=== PATIENT | female | born 1990 | race Caucasian/White ===

== ENCOUNTER 2017-08-03 08:37 | Inpatient (IN) | payer BC ==
[2017-08-03 10:23] VITALS: BMI 25.0
--- NOTE | 2017-08-03 10:51 | HP ---
COWS - Scale Resting Pulse: 1= [place] 81-100 Sweatin= Chills/Flushing Restless Observation: 1= Difficult to Sit Still Pupil Size: 1= Pupils >than Normal Bone or Joint Aches: 2= Severe Diffuse Aches Runny Nose/ Eye Tearin= Runny Nose/Eyes GI Upset > 30mins: 2= Nausea/Diarrhea Tremor Observation: 1= Tremor [place], Not Seen Yawning Observation: 1= 1-2x During Session Anxiety or Irritability: 2=Irritable/Anxious Goose Flesh Skin: 0=Smooth Skin COWS Score: 14 CIWA Score - CIWA Score Nausea/Vomitin Muscle Tremors: 1-None Visible, but [place] Anxiety: 4-Mod. Anxious/Guarded Agitation: 2 Paroxysmal Sweats: 2 Orientation: 0-Oriented Tacttile Disturbances: 0-None Auditory Disturbances: 0-None Visual Disturbances: 0-None Headache: 3-Moderate CIWA-Ar Total Score: 14 Admission [facility] - HPI Chief Complaint: Pt presents for Heroin and Xanax Withdrawal symptoms. Allergies/Adverse Reactions: Allergies Allergy/AdvReac Type Severity Reaction Status Date / Time No Known Allergies Allergy Verified 08/03/17 09:58 History of Present Illness: Pt presents for withdrawal symptoms from Heroin and Xanax. Also drinks ETOH every other day, about one pint of Vodka. Starting using heroin and Xanax at age 18-19 years old. Pt injects heroin up to 25-30 bags and takes 6-7mg of Xanax daily. Never attempted detox or heroin. Did outpatient rehab years ago in [facility] and then in [facility]. Most recent relapse one month ago after being sober 4-5 years. Has history of withdrawal seizures. Last episode 6 days ago. Pt states she didn't go to ER. Has history of anemia, depression and anxiety. Denies suicidal ideation and attempts. Last dose of heroin and Xanax last night at 11pm. Exam Limitations: No Limitations - Ebola screening Have you traveled outside of the country in the last 21 days: No Have you had contact with anyone from an Ebola affected area: No Have you been sick,other than usual withdrawal symptoms: No Do you have a fever: No - Review of Systems Constitutional: Chills, Night Sweats, Changes in sleep, Unexplained wgt Loss EENT: reports: Nose Congestion Respiratory: reports: No Symptoms reported Cardiac: reports: Chest Tightness GI: reports: Diarrhea, Nausea, Poor Fluid Intake, Abdominal cramping : reports: No Symptoms Reported Musculoskeletal: reports: Back Pain, Joint Pain, Muscle Pain Integumentary: reports: Sweating Neuro: reports: Headache, Numbness, Seizure, Tingling, Tremors Endocrine: reports: Flushing, Unexplained Weight Loss Hematology: reports: No Symptoms Reported Psychiatric: reports: Anxious, Depressed Patient History - Patient Medical History Hx Anemia: Yes Hx Asthma: No Hx Chronic Obstructive Pulmonary Disease (COPD): No Hx Cancer: No Hx Cardiac Disorders: No Hx Congestive Heart Failure: No Hx Hypertension: No Hx Hypercholesterolemia: No Hx Pacemaker: No HX Cerebrovascular Accident: No Hx Seizures: Yes (+seizures due to withdrawal from Xanax. Lst seizure 6 days. Didn't go to ER) Hx Dementia: No Hx Diabetes: No Hx Gastrointestinal Disorders: No Hx Liver Disease: No Hx Genitourinary Disorders: No Hx Sexually Transmitted Disorders: No Hx Renal Disease (ESRD): No Hx Thyroid Disease: No Hx Human Immunodeficiency Virus (HIV): No Hx Hepatitis C: No Hx Depression: Yes (Depression and Anxiety) Hx Suicide Attempt: No (denies SI/Suicidal attempts) Hx Bipolar Disorder: No Hx Schizophrenia: No - Patient Surgical History Past Surgical History: No Hx Neurologic Surgery: No Hx Cataract Extraction: No Hx Cardiac Surgery: No Hx Lung Surgery: No Hx Breast Surgery: No Hx Breast Biopsy: No Hx Abdominal Surgery: No Hx Appendectomy: No Hx Cholecystectomy: No Hx Genitourinary Surgery: No Hx Section: No Hx Orthopedic Surgery: No Hx Hysterectomy: No Anesthesia Reaction: No - PPD History Previous Implant?: Yes Documented Results: Negative w/o proof Implanted On Prior R Admission?: No - Reproductive History Last Menstrual Period: 07/22/17 Patient : No - Smoking Cessation Smoking history: Current every day smoker Have you smoked in the past 12 months: Yes Aproximately how many cigarettes per day: 30 Hx Chewing Tobacco Use: No Initiated information on smoking cessation: Yes 'Breaking Loose' booklet given: 08/03/17 - Substance & Tx. History Hx Alcohol Use: Yes Hx Substance Use: Yes Substance Use Type: Alcohol, Cocaine, Heroin, Opiates, Tranquilizers (Xanax) - Substances Abused Heroin Route: Injection Frequency: Daily Amount used: 25 bags Age of first use: 20 Date of Last Use: 08/02/17 Xanax Route: Oral Frequency: Daily Amount used: 6 tabs. (2 mg.) Age of first use: 15 Date of Last Use: 08/02/17 Alcohol-vodka Route: Oral Frequency: 3-6 times per week Amount used: 1 pt. Age of first use: 14 Date of Last Use: 08/02/17 Family Disease History - Family Disease History Family History: Unremarkable Admission Physical Exam [facility] - Vital Signs Vital Signs: Vital Signs - 24 hr 08/03/17 10:20 Temperature 98.7 F Pulse Rate 97 H Respiratory 20 Rate Blood Pressure 134/77 Cleared for Admission [facility] - Detox or Rehab [facility] Level of Care: Medically Managed Detox Regimen/Protocol: Methadone/Valium [facility] Breath Alcohol Content Breath Alcohol Content: 0 Urine Pregancy Test - Result Urine Test Results: Negative- NO Line Present Urine Drug Screen - Results Drug Screen Negative: No Urine Drug Screen Results: AZAM-Cocaine, OPI-Opiates, BZO-Benzodiazepines, OXY- Oxycodone Inpatient Rehab Admission - Initial Determination Are CD services needed?: Yes Free of communicable disease: Yes Not in need of hospitalization: Yes - Rehab Admission Criteria Previous failed treatment: Yes Poor recovery environment: Yes Comorbidities: Yes Lacks judgement: Yes
[2017-08-03] MEDS ORDERED: P-EPHED 60MG/TRIPROLIDI 2.5MG TABLET PO PRN (11:10)
[2017-08-03] MEDS ORDERED: guaiFENesin/D-METHORPHAN HB 10 ML UNIT-DOSE CUPS PO PRN (11:10)
[2017-08-03] MEDS ORDERED: MAG HYDROX/AL HYDROX/SIMETH 30 ML UNIT-DOSE CUP PO PRN (11:10)
[2017-08-03] MEDS ORDERED: LOPERAMIDE HCL 2 MG CAPSULE PO PRN (11:10)
[2017-08-03] MEDS ORDERED: MAGNESIUM HYDROX 2400MG/30ML ORAL SUSPENSION 30 ML CUP PO PRN (11:10)
[2017-08-03] MEDS ORDERED: NICOTINE POLACRILEX 2 MG GUM BUC PRN (11:10)
[2017-08-03] MEDS ORDERED: MENTHOL/PHENOL 1 EACH UD MM PRN (11:10)
[2017-08-03] MEDS ORDERED: MAGNESIUM CITRATE 300 ML BOTTLE PO PRN (11:10)
[2017-08-03] MEDS ORDERED: diazePAM 5 MG TABLET PO ONE (12:15)
[2017-08-03] MEDS ORDERED: METHADONE HCL 10 MG TABLET (FOR DETOX USE ONLY) PO ONE ×2 (12:17→23:00)
[2017-08-03] MEDS: diazePAM 5 MG TABLET PO SCH ×2 (14:16→22:45)
--- NOTE | 2017-08-03 15:44 | CONSULT ---
[facility] Psychiatric Consult - Data Date of interview: 08/03/17 Admission source: [facility] Identifying data: Pt. is a 26 year old single female, without kids, unemployed, and living with her boyfriend. This is patient's first [facility] to [facility]. Pt. admitted to for alcohol, cocaine, opiate, and benzodiazepine dependence. Substance Abuse History: Following information confirmed with Ms. Cordova: Smoking Cessation. Smoking history: Current every day smoker. Have you smoked in the past 12 months: Yes. Aproximately how many cigarettes per day: 30. Hx Chewing Tobacco Use: No. Initiated information on smoking cessation: Yes. ' Breaking Loose' booklet given: 08/03/17. - Substance & Tx. History. Hx Alcohol Use: Yes. Hx Substance Use: Yes. Substance Use Type: Alcohol, Cocaine , Heroin, Opiates, Tranquilizers (Xanax). - Substances Abused. Heroin. Route: Injection. Frequency: Daily. Amount used: 25 bags. Age of first use: 20. Date of Last Use: 08/02/17. Xanax. Route: Oral. Frequency: Daily. Amount used: 6 tabs. (2 mg.). Age of first use: 15. Date of Last Use: . Alcohol-vodka. Route: Oral. Frequency: 3-6 times per week. Amount used: 1 pt. Age of first use: 14. Date of Last Use: 08/02/17 Medical History: Anemia, Seizures due to withdrawal from Xanax. Lst seizure 6 days. Didn't go to ER Psychiatric History: Pt. denies h/o psychiatric hospitalization, outpatient care , and suicide attempts. Pt. was prescribed wellbutrin from her PCP approximately one year ago. Physical/Sexual Abuse/Trauma History: Denies. Mental Status Exam - Mental Status Exam Alert and Oriented to: Time, Place, Person Cognitive Function: Good Patient Appearance: Well Groomed Mood: Hopeful Affect: Appropriate Patient Behavior: Appropriate, Cooperative Speech Pattern: Clear, Appropriate Voice Loudness: Normal Thought Process: Goal Oriented Thought Disorder: Not Present Hallucinations: Denies Suicidal Ideation: Denies Homicidal Ideation: Denies Insight/Judgement: Poor Sleep: Poorly Appetite: Fair Muscle strength/Tone: Normal Gait/Station: Normal Psychiatric Findings - Problem List ([place] 1, 2,3) (1) Nicotine dependence Current Visit: Yes Status: Acute Qualifiers: Substance use status: unspecified nicotine-induced disorder (2) Opioid dependence with withdrawal Current Visit: Yes Status: Acute (3) Sedative hypnotic withdrawal Current Visit: Yes Status: Acute Qualifiers: Complication of substance-induced condition: uncomplicated Qualified Code(s ): 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 Detoxification in progress. Ambien 10mg qhs prn ordered for insomnia. Benefits and side effects discussed. Pt. made aware of the risk of parasomnia. Verbal consent given. Will continue to monitor patient.
[2017-08-03] MEDS: diazePAM 5 MG TABLET PO PRN (17:45)
[2017-08-03] MEDS ORDERED: ZOLPIDEM TARTRATE 10 MG TABLET (PARK CARE ONLY) PO PRN (22:00)
[2017-08-03] MEDS ORDERED: MELATONIN 5 MG TABLETS PO PRN (22:00)
[2017-08-03] MEDS: THIAMINE HCL 100 MG TABLET (FP) PO SCH (22:44)
[2017-08-03] MEDS: ZOLPIDEM TARTRATE 10 MG TABLET (PARK CARE ONLY) PO PRN (22:44)
[2017-08-03 23:36] LABS: URINE APPEARANCE SLCLOUDY; URINE BILIRUBIN NEGATIVE (<2.0 mg/dL); URINE BLOOD NEGATIVE (NEGATIVE); URINE COLOR AMBER; URINE GLUCOSE (UA) NEGATIVE (NEGATIVE); URINE KETONE 1+ (NEGATIVE); URINE LEUK ESTERASE NEGATIVE (NEGATIVE); URINE NITRITE NEGATIVE (NEGATIVE)
[2017-08-04 00:11] LABS: URINE PROTEIN 2+ (NEGATIVE)
[2017-08-04 00:30] LABS: EPI CELLS FEW /HPF (FEW); URINE BACTERIA RARE /hpf (NONE SEEN); URINE HYALINE CAST 47 /lpf; URINE MUCUS MANY
[2017-08-04] MEDS: diazePAM 5 MG TABLET PO SCH ×3 (06:21→22:18)
[2017-08-04] MEDS ORDERED: METHADONE HCL 10 MG TABLET (FOR DETOX USE ONLY) PO SCH (10:00)
[2017-08-04 10:43] LABS: HEMATOCRIT 38.6 % (32.4-45.2); HEMOGLOBIN 13.1 GM/dL (10.7-15.3); MCH 31.9 pg (25.7-33.7); MCHC 33.9 g/dl (32.0-36.0); MEAN PLT VOLUME 8.8 fl (7.5-11.1); PLATELET COUNT 295 K/MM3 (134-434); RBC 4.11 M/mm3 (3.60-5.2); RDW 12.9 % (11.6-15.6); WHITE BLOOD COUNT 10.5 K/mm3 (4.0-10.0)
[2017-08-04] MEDS: PRENATAL VITAMINS W/ FOLIC ACID TABLET (FP) PO SCH (10:50)
[2017-08-04] MEDS: NICOTINE 21 MG/24 HOURS TOPICAL PATCH TD SCH (10:50)
[2017-08-04] MEDS: diazePAM 5 MG TABLET PO PRN ×2 (10:52→17:57)
[2017-08-04] MEDS: ACETAMINOPHEN 325 MG TABLET (FP) PO PRN ×2 (11:37→17:53)
[2017-08-04 12:01] LABS: ALBUMIN 4.1 g/dl (3.4-5.0); ANION GAP 7 (8-16); BILIRUBIN,TOTAL 0.4 mg/dL (0.2-1.0); BLOOD UREA NITROGEN 9 mg/dL (7-18); CALCIUM 9.4 mg/dL (8.5-10.1); CHLORIDE 104 mmol/L (98-107); CO2 27 mmol/L (21-32); CREATININE 0.9 mg/dL (0.55-1.02); GLUCOSE,RANDOM 104 mg/dL (74-106); POTASSIUM 4.2 mmol/L (3.5-5.1); SGOT/AST 10 U/L (15-37); SGPT/ALT 15 U/L (12-78); SODIUM 138 mmol/L (136-145); TOT PROT 7.9 g/dl (6.4-8.2)
[2017-08-04 12:02] LABS: ALK PHOS 81 U/L (45-117)
--- NOTE | 2017-08-04 15:54 | PN ---
S CIWA - CIWA Score Nausea/Vomitin Muscle Tremors: 3 Anxiety: 3 Agitation: 2 Paroxysmal Sweats: 1-Minimal Palms Moist Orientation: 0-Oriented Tacttile Disturbances: 1-Very Mild Itch/Numbness Auditory Disturbances: 1-Very Mild Visual Disturbances: 0-None Headache: 2-Mild CIWA-Ar Total Score: 16 [facility] COWS - Scale Resting Pulse: 0= [place] 80 or Below Sweatin= Chills/Flushing Restless Observation: 3= Extraneous Movement Pupil Size: 2= Moderately Dilated Bone or Joint Aches: 2= Severe Diffuse Aches Runny Nose/ Eye Tearin= Runny Nose/Eyes GI Upset > 30mins: 3= Vomiting/Diarrhea Tremor Observation of Outstretched Hands: 2= Slight Tremor Visible Yawning Observation: 1= 1-2x During Session Anxiety or Irritability: 2=Irritable/Anxious Goose Flesh Skin: 0=Smooth Skin COWS Score: 18 [facility] Progress Note (SOAP) Subjective: ALERT,IRRITABLE,ANXIOUS,INTERRUPTED SLEEP,TREMOR,PAIN IN THE BODY AND BACK Objective: 08/04/17 15:51 Vital Signs Temperature 98.2 F 08/04/17 11:36 Pulse Rate 73 08/04/17 11:36 Respiratory Rate 18 08/04/17 11:36 Blood Pressure 109/67 08/04/17 11:36 O2 Sat by Pulse Oximetry (%) EKG NSR,NORMAL ECG 08/04/17 15:52 Vital Signs Temperature 98.2 F 08/04/17 11:36 Pulse Rate 73 08/04/17 11:36 Respiratory Rate 18 08/04/17 11:36 Blood Pressure 109/67 08/04/17 11:36 O2 Sat by Pulse Oximetry (%) 08/04/17 15:52 Laboratory Last Values WBC 10.5 K/mm3 (4.0-10.0) H 08/04/17 06:20 RBC 4.11 M/mm3 (3.60-5.2) 08/04/17 06:20 Hgb 13.1 GM/dL (10.7-15.3) 08/04/17 06:20 Hct 38.6 % (32.4-45.2) 08/04/17 06:20 MCV 94.0 fl (80-96) 08/04/17 06:20 MCH 31.9 pg (25.7-33.7) 08/04/17 06:20 MCHC 33.9 g/dl (32.0-36.0) 08/04/17 06:20 RDW 12.9 % (11.6-15.6) 08/04/17 06:20 Plt Count 295 K/MM3 (134-434) 08/04/17 06:20 MPV 8.8 fl (7.5-11.1) 08/04/17 06:20 Sodium 138 mmol/L (136-145) 08/04/17 06:20 Potassium 4.2 mmol/L (3.5-5.1) 08/04/17 06:20 Chloride 104 mmol/L (98-107) 08/04/17 06:20 Carbon Dioxide 27 mmol/L (21-32) 08/04/17 06:20 Anion Gap 7 (8-16) L 08/04/17 06:20 BUN 9 mg/dL (7-18) 08/04/17 06:20 Creatinine 0.9 mg/dL (0.55-1.02) 08/04/17 06:20 Creat Clearance w eGFR > 60 (>60) 08/04/17 06:20 Random Glucose 104 mg/dL (74-106) 08/04/17 06:20 Calcium 9.4 mg/dL (8.5-10.1) 08/04/17 06:20 Total Bilirubin 0.4 mg/dL (0.2-1.0) 08/04/17 06:20 AST 10 U/L (15-37) L 08/04/17 06:20 ALT 15 U/L (12-78) 08/04/17 06:20 Alkaline Phosphatase 81 U/L (45-117) 08/04/17 06:20 Total Protein 7.9 g/dl (6.4-8.2) 08/04/17 06:20 Albumin 4.1 g/dl (3.4-5.0) 08/04/17 06:20 Urine Color Kristyn 08/03/17 19:41 Urine Appearance Slcloudy 08/03/17 19:41 Urine pH 5.0 (5.0-8.0) 08/03/17 19:41 Ur Specific [place] 1.028 (1.001-1.035) 08/03/17 19:41 Urine Protein 2+ (NEGATIVE) H 08/03/17 19:41 Urine Glucose (UA) Negative (NEGATIVE) 08/03/17 19:41 Urine Ketones 1+ (NEGATIVE) H 08/03/17 19:41 Urine Blood Negative (NEGATIVE) 08/03/17 19:41 Urine Nitrite Negative (NEGATIVE) 08/03/17 19:41 Urine Bilirubin Negative (<2.0 mg/dL) 08/03/17 19:41 Urine Urobilinogen 2.0 mg/dL (0.2-1.0) H 08/03/17 19:41 Ur Leukocyte Esterase Negative (NEGATIVE) 08/03/17 19:41 Urine WBC (Auto) 8 /hpf (3-5) 08/03/17 19:41 Urine RBC (Auto) 1 /hpf (0-3) 08/03/17 19:41 Ur Epithelial Cells Few /HPF (FEW) 08/03/17 19:41 Urine Bacteria Rare /hpf (NONE SEEN) 08/03/17 19:41 Hyaline Casts 47 /lpf 08/03/17 19:41 Urine Mucus Many 08/03/17 19:41 RPR Titer Nonreactive (NONREACTIVE) 08/04/17 06:20 Hep C Ab Diagnostic <0.1 s/co ratio (0.0-0.9) 08/03/17 11:40 Liver Fibrosis Interp (.) 08/03/17 11:40 HIV 1&2 Antibody Screen Negative 08/03/17 11:00 HIV P24 Antigen Negative 08/03/17 11:00 Assessment: 08/04/17 15:53 WITHDRAWAL SYMPTOM Plan: CONTINUE DETOX
[2017-08-04] MEDS: THIAMINE HCL 100 MG TABLET (FP) PO SCH (22:17)
[2017-08-04] MEDS: ZOLPIDEM TARTRATE 10 MG TABLET (PARK CARE ONLY) PO PRN (22:18)
[2017-08-05] MEDS: diazePAM 5 MG TABLET PO PRN ×3 (00:52→18:06)
[2017-08-05] MEDS: ACETAMINOPHEN 325 MG TABLET (FP) PO PRN ×3 (09:32→18:06)
[2017-08-05] MEDS: PRENATAL VITAMINS W/ FOLIC ACID TABLET (FP) PO SCH (09:34)
[2017-08-05] MEDS: METHADONE HCL 5 MG TABLET (FOR DETOX USE ONLY) PO SCH (09:35)
[2017-08-05] MEDS: diazePAM 5 MG TABLET PO SCH ×2 (09:35→21:48)
[2017-08-05] MEDS: NICOTINE 21 MG/24 HOURS TOPICAL PATCH TD SCH (10:45)
--- NOTE | 2017-08-05 11:45 | PN ---
S CIWA - CIWA Score Nausea/Vomitin-Mild Nausea/No Vomiting Muscle Tremors: 4-Moderate,w/Arms Extend Anxiety: 4-Mod. Anxious/Guarded Agitation: 4-Moderately Restless Paroxysmal Sweats: 1-Minimal Palms Moist Orientation: 0-Oriented Tacttile Disturbances: 0-None Auditory Disturbances: 0-None Visual Disturbances: 0-None Headache: 0-None Present CIWA-Ar Total Score: 14 [facility] COWS - Scale Resting Pulse: 0= [place] 80 or Below Sweatin= Chills/Flushing Restless Observation: 1= Difficult to Sit Still Pupil Size: 0= Normal to Room Light Bone or Joint Aches: 2= Severe Diffuse Aches Runny Nose/ Eye Tearin= Runny Nose/Eyes GI Upset > 30mins: 2= Nausea/Diarrhea Tremor Observation of Outstretched Hands: 2= Slight Tremor Visible Yawning Observation: 2= >3x During Session Anxiety or Irritability: 2=Irritable/Anxious Goose Flesh Skin: 0=Smooth Skin COWS Score: 14 [facility] Progress Note (SOAP) Subjective: joint pain body ache sweat tremor anxiety restlessness difficulty sleep at night left hand palm between index and middle finger swell denies trauma Objective: 08/05/17 11:47 Vital Signs Temperature 97.3 F L 08/05/17 07:02 Pulse Rate 74 08/05/17 07:02 Respiratory Rate 18 08/05/17 07:02 Blood Pressure 120/71 08/05/17 07:02 O2 Sat by Pulse Oximetry (%) Laboratory Last Values WBC 10.5 K/mm3 (4.0-10.0) H 08/04/17 06:20 RBC 4.11 M/mm3 (3.60-5.2) 08/04/17 06:20 Hgb 13.1 GM/dL (10.7-15.3) 08/04/17 06:20 Hct 38.6 % (32.4-45.2) 08/04/17 06:20 MCV 94.0 fl (80-96) 08/04/17 06:20 MCH 31.9 pg (25.7-33.7) 08/04/17 06:20 MCHC 33.9 g/dl (32.0-36.0) 08/04/17 06:20 RDW 12.9 % (11.6-15.6) 08/04/17 06:20 Plt Count 295 K/MM3 (134-434) 08/04/17 06:20 MPV 8.8 fl (7.5-11.1) 08/04/17 06:20 Sodium 138 mmol/L (136-145) 08/04/17 06:20 Potassium 4.2 mmol/L (3.5-5.1) 08/04/17 06:20 Chloride 104 mmol/L (98-107) 08/04/17 06:20 Carbon Dioxide 27 mmol/L (21-32) 08/04/17 06:20 Anion Gap 7 (8-16) L 08/04/17 06:20 BUN 9 mg/dL (7-18) 08/04/17 06:20 Creatinine 0.9 mg/dL (0.55-1.02) 08/04/17 06:20 Creat Clearance w eGFR > 60 (>60) 08/04/17 06:20 Random Glucose 104 mg/dL (74-106) 08/04/17 06:20 Calcium 9.4 mg/dL (8.5-10.1) 08/04/17 06:20 Total Bilirubin 0.4 mg/dL (0.2-1.0) 08/04/17 06:20 AST 10 U/L (15-37) L 08/04/17 06:20 ALT 15 U/L (12-78) 08/04/17 06:20 Alkaline Phosphatase 81 U/L (45-117) 08/04/17 06:20 Total Protein 7.9 g/dl (6.4-8.2) 08/04/17 06:20 Albumin 4.1 g/dl (3.4-5.0) 08/04/17 06:20 Urine Color Kristyn 08/03/17 19:41 Urine Appearance Slcloudy 08/03/17 19:41 Urine pH 5.0 (5.0-8.0) 08/03/17 19:41 Ur Specific [place] 1.028 (1.001-1.035) 08/03/17 19:41 Urine Protein 2+ (NEGATIVE) H 08/03/17 19:41 Urine Glucose (UA) Negative (NEGATIVE) 08/03/17 19:41 Urine Ketones 1+ (NEGATIVE) H 08/03/17 19:41 Urine Blood Negative (NEGATIVE) 08/03/17 19:41 Urine Nitrite Negative (NEGATIVE) 08/03/17 19:41 Urine Bilirubin Negative (<2.0 mg/dL) 08/03/17 19:41 Urine Urobilinogen 2.0 mg/dL (0.2-1.0) H 08/03/17 19:41 Ur Leukocyte Esterase Negative (NEGATIVE) 08/03/17 19:41 Urine WBC (Auto) 8 /hpf (3-5) 08/03/17 19:41 Urine RBC (Auto) 1 /hpf (0-3) 08/03/17 19:41 Ur Epithelial Cells Few /HPF (FEW) 08/03/17 19:41 Urine Bacteria Rare /hpf (NONE SEEN) 08/03/17 19:41 Hyaline Casts 47 /lpf 08/03/17 19:41 Urine Mucus Many 08/03/17 19:41 RPR Titer Nonreactive (NONREACTIVE) 08/04/17 06:20 Hep C Ab Diagnostic <0.1 s/co ratio (0.0-0.9) 08/03/17 11:40 Liver Fibrosis Interp (.) 08/03/17 11:40 HIV 1&2 Antibody Screen Negative 08/03/17 11:00 HIV P24 Antigen Negative 08/03/17 11:00 lab noted 08/05/17 11:49 left hand palm swell + erythema tenderness able to make fist slowly brisk capillary refilled Assessment: 08/05/17 11:48 withdrawal sx 08/05/17 11:50 cellulitis Plan: continue detox keflex 500 mg bid x 7 days
[2017-08-05] MEDS: CEPHALEXIN MONOHYDRATE 500 MG CAPSULE (UD) PO SCH ×2 (13:22→21:48)
[2017-08-05] MEDS: hydrOXYzine PAMOATE 50 MG CAPSULE (FP) PO PRN (15:40)
[2017-08-05] MEDS: IBUPROFEN 400 MG TABLET (FP) PO PRN (21:47)
[2017-08-05] MEDS: ZOLPIDEM TARTRATE 10 MG TABLET (PARK CARE ONLY) PO PRN (21:48)
[2017-08-05] MEDS: THIAMINE HCL 100 MG TABLET (FP) PO SCH (21:48)
[2017-08-06] MEDS: diazePAM 5 MG TABLET PO PRN (07:01)
[2017-08-06] MEDS: IBUPROFEN 400 MG TABLET (FP) PO PRN ×3 (07:01→19:53)
[2017-08-06] MEDS: PRENATAL VITAMINS W/ FOLIC ACID TABLET (FP) PO SCH (10:05)
[2017-08-06] MEDS: CEPHALEXIN MONOHYDRATE 500 MG CAPSULE (UD) PO SCH ×2 (10:05→22:23)
[2017-08-06] MEDS: METHADONE HCL 5 MG TABLET (FOR DETOX USE ONLY) PO SCH (10:06)
[2017-08-06] MEDS: diazePAM 5 MG TABLET PO SCH ×2 (10:06→22:21)
[2017-08-06] MEDS: ACETAMINOPHEN 325 MG TABLET (FP) PO PRN ×3 (10:07→22:21)
[2017-08-06] MEDS: NICOTINE 21 MG/24 HOURS TOPICAL PATCH TD SCH (10:09)
[2017-08-06] MEDS: hydrOXYzine PAMOATE 50 MG CAPSULE (FP) PO PRN ×3 (11:30→22:23)
--- NOTE | 2017-08-06 12:40 | PN ---
[facility] Progress Note (SOAP) Subjective: Anxious Sleep disturbance Objective: 08/06/17 12:39 A & O x 3 not in acute distress Vital Signs Temperature 98.4 F 08/06/17 10:20 Pulse Rate 85 08/06/17 10:20 Respiratory Rate 18 08/06/17 10:20 Blood Pressure 105/86 08/06/17 10:20 O2 Sat by Pulse Oximetry (%) Assessment: 08/06/17 12:40 withdrawal sx Plan: continue detox
--- NOTE | 2017-08-06 12:44 | EKG ---
Test Reason : Blood Pressure : / mmHG Vent. Rate : 077 BPM Atrial Rate : 077 BPM P-R Int : 154 ms QRS Dur : 080 ms QT Int : 368 ms P-R-T Axes : 017 077 058 degrees QTc Int : 416 ms NORMAL SINUS RHYTHM NORMAL ECG NO PREVIOUS ECGS AVAILABLE Confirmed by KRAIG TAMAYO MD ([id number]) on 08/06/2017 12:44:31 PM Referred By: Confirmed By:KRAIG TAMAYO MD
[2017-08-06] MEDS ORDERED: diazePAM 5 MG TABLET PO ONE (13:30)
[2017-08-06] MEDS: THIAMINE HCL 100 MG TABLET (FP) PO SCH (22:21)
[2017-08-07] MEDS: hydrOXYzine PAMOATE 50 MG CAPSULE (FP) PO PRN (02:42)
[2017-08-07] MEDS: ACETAMINOPHEN 325 MG TABLET (FP) PO PRN (02:43)
[2017-08-07] MEDS: IBUPROFEN 400 MG TABLET (FP) PO PRN (04:24)
[2017-08-07] MEDS ORDERED: METHADONE HCL 5 MG TABLET (FOR DETOX USE ONLY) PO ONE (09:30)
[2017-08-07] MEDS: CEPHALEXIN MONOHYDRATE 500 MG CAPSULE (UD) PO SCH (09:56)
[2017-08-07] MEDS: PRENATAL VITAMINS W/ FOLIC ACID TABLET (FP) PO SCH (09:56)
[2017-08-07] MEDS ORDERED: METHADONE HCL 10 MG TABLET (FOR DETOX USE ONLY) PO SCH (10:00)
[2017-08-07] MEDS ORDERED: diazePAM 5 MG TABLET PO SCH (10:00)
[2017-08-07 10:21] VITALS: BP 140/91; PULSE 82; TEMP 97.9
--- NOTE | 2017-08-07 10:26 | DS ---
[facility] Detox Discharge Summary Admission Date: 08/03/17 Discharge Date: 08/07/17 - History Present History: Opioid Dependence, Sedative Dependence Additional Comments: 26 years old female admitted on 08/03/17 for opioid and xanax detox patient stated that she is feeling better denies opioid and benzo withdrawal sx patient wants to go to her aftercare program today for recovery sobriety patient reported that this is her last detox that [facility] can help her remain sober patient is alert oriented x 3 no acute distress steady coherent denies suicidal denies homocidal no self destructive behavior - Physical Exam Results Vital Signs: Vital Signs Temperature 97.9 F 08/07/17 10:20 Pulse Rate 82 08/07/17 10:20 Respiratory Rate 20 08/07/17 10:20 Blood Pressure 140/91 08/07/17 10:20 O2 Sat by Pulse Oximetry (%) Pertinent Admission Physical Exam Findings: withdrawal sx Vital Signs Temperature 97.9 F 08/07/17 10:20 Pulse Rate 82 08/07/17 10:20 Respiratory Rate 20 08/07/17 10:20 Blood Pressure 140/91 08/07/17 10:20 O2 Sat by Pulse Oximetry (%) Laboratory Last Values WBC 10.5 K/mm3 (4.0-10.0) H 08/04/17 06:20 RBC 4.11 M/mm3 (3.60-5.2) 08/04/17 06:20 Hgb 13.1 GM/dL (10.7-15.3) 08/04/17 06:20 Hct 38.6 % (32.4-45.2) 08/04/17 06:20 MCV 94.0 fl (80-96) 08/04/17 06:20 MCH 31.9 pg (25.7-33.7) 08/04/17 06:20 MCHC 33.9 g/dl (32.0-36.0) 08/04/17 06:20 RDW 12.9 % (11.6-15.6) 08/04/17 06:20 Plt Count 295 K/MM3 (134-434) 08/04/17 06:20 MPV 8.8 fl (7.5-11.1) 08/04/17 06:20 Sodium 138 mmol/L (136-145) 08/04/17 06:20 Potassium 4.2 mmol/L (3.5-5.1) 08/04/17 06:20 Chloride 104 mmol/L (98-107) 08/04/17 06:20 Carbon Dioxide 27 mmol/L (21-32) 08/04/17 06:20 Anion Gap 7 (8-16) L 08/04/17 06:20 BUN 9 mg/dL (7-18) 08/04/17 06:20 Creatinine 0.9 mg/dL (0.55-1.02) 08/04/17 06:20 Creat Clearance w eGFR > 60 (>60) 08/04/17 06:20 Random Glucose 104 mg/dL (74-106) 08/04/17 06:20 Calcium 9.4 mg/dL (8.5-10.1) 08/04/17 06:20 Total Bilirubin 0.4 mg/dL (0.2-1.0) 08/04/17 06:20 AST 10 U/L (15-37) L 08/04/17 06:20 ALT 15 U/L (12-78) 08/04/17 06:20 Alkaline Phosphatase 81 U/L (45-117) 08/04/17 06:20 Total Protein 7.9 g/dl (6.4-8.2) 08/04/17 06:20 Albumin 4.1 g/dl (3.4-5.0) 08/04/17 06:20 Urine Color Kristyn 08/03/17 19:41 Urine Appearance Slcloudy 08/03/17 19:41 Urine pH 5.0 (5.0-8.0) 08/03/17 19:41 Ur Specific [place] 1.028 (1.001-1.035) 08/03/17 19:41 Urine Protein 2+ (NEGATIVE) H 08/03/17 19:41 Urine Glucose (UA) Negative (NEGATIVE) 08/03/17 19:41 Urine Ketones 1+ (NEGATIVE) H 08/03/17 19:41 Urine Blood Negative (NEGATIVE) 08/03/17 19:41 Urine Nitrite Negative (NEGATIVE) 08/03/17 19:41 Urine Bilirubin Negative (<2.0 mg/dL) 08/03/17 19:41 Urine Urobilinogen 2.0 mg/dL (0.2-1.0) H 08/03/17 19:41 Ur Leukocyte Esterase Negative (NEGATIVE) 08/03/17 19:41 Urine WBC (Auto) 8 /hpf (3-5) 08/03/17 19:41 Urine RBC (Auto) 1 /hpf (0-3) 08/03/17 19:41 Ur Epithelial Cells Few /HPF (FEW) 08/03/17 19:41 Urine Bacteria Rare /hpf (NONE SEEN) 08/03/17 19:41 Hyaline Casts 47 /lpf 08/03/17 19:41 Urine Mucus Many 08/03/17 19:41 RPR Titer Nonreactive (NONREACTIVE) 08/04/17 06:20 Hep C Ab Diagnostic <0.1 s/co ratio (0.0-0.9) 08/03/17 11:40 Liver Fibrosis Interp (.) 08/03/17 11:40 HIV 1&2 Antibody Screen Negative 08/03/17 11:00 HIV P24 Antigen Negative 08/03/17 11:00 lab noted - Treatment Hospital Course: Detox Protocol Followed, Detoxed Safely, Responded well, Discharged Condition Good, Rehab Referral Accepted Patient has Accepted a Rehab Referral to: [facility] - Medication Discharge Medications: Ambulatory Orders Norethindrone-E.estradiol-Iron [Tino Fe 1.5-30 Tablet] 1 each PO DAILY - Diagnosis (1) Opioid dependence with withdrawal Current Visit: Yes Status: Acute (2) Sedative hypnotic withdrawal Current Visit: Yes Status: Acute Qualifiers: Complication of substance-induced condition: uncomplicated Qualified Code(s ): F13.230 - Sedative, hypnotic or anxiolytic dependence with withdrawal, uncomplicated (3) Nicotine dependence Current Visit: Yes Status: Acute Qualifiers: Nicotine product type: cigarettes Substance use status: in withdrawal Qualified Code(s): F17.213 - Nicotine dependence, cigarettes, with withdrawal - AMA Did Patient Leave Against Medical Advice: No
[2017-08-07] MEDS: NICOTINE 21 MG/24 HOURS TOPICAL PATCH TD SCH (11:01)
[2017-08-08] MEDS ORDERED: METHADONE HCL 5 MG TABLET (FOR DETOX USE ONLY) PO SCH (06:00)
== END 2017-08-07 10:14 | disposition home or self-care (01) | DRG 897 ==
LOC: YASAS 08:37 → Y6N 12:04
PROVIDERS: ADMIT Internal Medicine; ATTEND Internal Medicine
PROC: HZ2ZZZZ Detoxification Services for Substance Abuse Treatment (ICD-10-PCS; principal; 2017-08-03)
DX: F11.23 Opioid dependence with withdrawal (principal); F13.230 Sedative, hypnotic or anxiolytic dependence with withdrawal, uncomplicated; F10.230 Alcohol dependence with withdrawal, uncomplicated; F17.213 Nicotine dependence, cigarettes, with withdrawal; F41.9 Anxiety disorder, unspecified; G47.00 Insomnia, unspecified; Z86.2 Personal history of diseases of the blood and blood-forming organs and certain disorders involving the immune mechanism
CPT/HCPCS: 36415; 80053; 81003; 81015; 85027; 86593; 87389; 93005; 93010